=== PATIENT | female | born 1955 | race Caucasian/White ===

== ENCOUNTER 2020-09-07 14:38 | Outpatient (RCR) | payer OTHER, SELFPAY ==
[2020-09-07] MEDS: COVID-19 VACC, MRNA(PFIZER)/PF 30 MCG/0.3 ML SYRINGE IM (10:33)
[2020-09-28] MEDS: COVID-19 VACC, MRNA(PFIZER)/PF 30 MCG/0.3 ML SYRINGE IM (10:27)
== END 2020-09-07 23:59 ==
LOC: IMMUN 14:38
PROVIDERS: PCP Obstetrics & Gynecology; Visit Provider Family Medicine
DX: Z23 Encounter for immunization (principal)
CPT/HCPCS: 0001A; 0002A; 91300